=== PATIENT | female | born 1940 | race Caucasian/White ===

== ENCOUNTER 2017-05-16 10:16 | Outpatient (CLI) | payer MEDICARE, BC | END 2017-05-16 10:17 | disposition home or self-care (01) | LOC: BICMAMMO 10:16 | PROVIDERS: ATTEND Internal Medicine | DX: Z12.31 Encounter for screening mammogram for malignant neoplasm of breast (principal) | CPT/HCPCS: 77063; 77067; G0202 ==

== ENCOUNTER 2018-06-11 08:59 | Outpatient (CLI) | payer MEDICARE, BC | END 2018-06-11 09:00 | disposition home or self-care (01) | LOC: BICMAMMO 08:59 | PROVIDERS: ATTEND Internal Medicine | DX: Z12.31 Encounter for screening mammogram for malignant neoplasm of breast (principal) | CPT/HCPCS: 77063; 77067 ==

== ENCOUNTER 2018-06-12 12:00 | Outpatient (CLI) | payer MEDICARE, BC ==
--- NOTE | 2018-06-12 12:25 | RAD ---
RIGHT HAND 3 VIEWS: Date: 06/12/18 HISTORY: 77-year-old female with history of osteoarthritis, swelling, and pain. FINDINGS: There appears to be minimal soft tissue swelling of the region of the thumb. No evidence for acute fr acture or dislocation. Generalized arthrosis and degenerative change. IMPRESSION: Generalized degenerative and osteoarthrosis changes. Minimal soft tissue swelling in the region of th e thumb. No fracture, dislocation, or other acute process. POS: [email or web address]
--- NOTE | 2018-06-12 12:26 | RAD ---
RIGHT THUMB 3 VIEWS: Date: 06/12/18 HISTORY: 77-year-old female with history of swelling, pain, osteoarthritis. FINDINGS: AP, lateral, and oblique views of the right thumb are performed. Mild degenerative changes. No fractu re or dislocation. IMPRESSION: Mild degenerative changes without fracture or dislocation. Suggestion of mild soft tissue swelling. POS: [facility]
== END 2018-06-12 12:01 | disposition home or self-care (01) ==
LOC: BICRAD 12:00
PROVIDERS: ATTEND Internal Medicine
DX: M19.041 Primary osteoarthritis, right hand (principal)

== ENCOUNTER 2021-11-22 10:43 | Outpatient (CLI) | payer MEDICARE, BC | END 2021-11-22 10:44 | disposition home or self-care (01) | LOC: BICMAMMO 10:43 | PROVIDERS: ATTEND Internal Medicine | DX: Z12.31 Encounter for screening mammogram for malignant neoplasm of breast (principal); Z91.89 Other specified personal risk factors, not elsewhere classified | CPT/HCPCS: 77063; 77067 ==

== ENCOUNTER 2022-12-12 14:20 | Outpatient (CLI) | payer MEDICARE, BC | END 2022-12-12 14:21 | disposition home or self-care (01) | LOC: BICMAMMO 14:20 | PROVIDERS: ATTEND Internal Medicine | DX: Z12.31 Encounter for screening mammogram for malignant neoplasm of breast (principal); Z91.89 Other specified personal risk factors, not elsewhere classified | CPT/HCPCS: 77063; 77067 ==